=== PATIENT | male | born 1965 | race Caucasian/White ===

== ENCOUNTER → 2016-08-26 | Outpatient (CLI) | payer OTHER | LOC: EDBD → BMCIMAGING 09:56 → EDSEX 09:56 → EDBD 09:56 | PROVIDERS: ATTEND Physician Assistant | DX: S62.637A Displaced fracture of distal phalanx of left little finger, initial encounter for closed fracture (principal) ==

== ENCOUNTER 2016-11-15 16:07 | Emergency (ER) | payer OTHER ==
[2016-11-15 16:12] VITALS: BP 110/62; PULSE 69; RESP 16; TEMP 97.7; O2SAT 96
--- NOTE | 2016-11-15 16:33 | EDPHY ---
H & P Time Seen by Provider: 11/15/16 16:22 HPI/ROS: CHIEF COMPLAINT: Right hand injury HISTORY OF PRESENT ILLNESS: 51-year-old female presents to the emergency department by private vehicle with injury to her right hand. The patient states that she was at home and she cut the palmar aspect of her right hand on the bottom door of the Fridge. The incident happened just prior to arrival. She was able to control the bleeding with firm direct pressure. She believes her tetanus shot is current. She is right-hand dominant. Describes the pain as mild. Denies any other injury or trauma. ROS: Denies numbness or tingling in her fingers, retained foreign body, injury to her right wrist. Past Medical/Surgical History: Orthopedic surgery, hypothyroidism Social History: Smoking Status: Never smoked Physical Exam: On examination the patient has a 1 cm by 2 cm superficial skin avulsion to the base of the palmar aspect of her right thumb overlying thenar eminence. No palpable bony tenderness. Full range of motion of her thumb. No tendon injury noted. Normal sensation to light touch with normal 2 point discrimination. The other fingers appear on injured. There is some slow active bleeding noted. Constitutional: Initial Vital Signs Temperature (C) 36.5 C 11/15/16 16:10 Heart Rate 69 11/15/16 16:10 Respiratory Rate 16 11/15/16 16:10 Blood Pressure 110/62 11/15/16 16:10 O2 Sat (%) 96 11/15/16 16:10 O2 Delivery Mode Room Air Allergies/Adverse Reactions: No Known Allergies Allergy (Unverified 08/01/13 06:45) Home Medications: Medication Instructions Recorded Aspirin [Aspirin 81mg (OTC)] 1 tab PO DAILY 08/01/13 Cholecalciferol Vit D3 [Vitamin D3 08/01/13 1000 units (OTC)] Folic Acid 1 PO DAILY 08/01/13 Herbals/Supplements -Info Only 1 tab PO DAILY 08/01/13 Herbals/Supplements -Info Only 1 tab PO DAILY 08/01/13 [place]-3/Dha/Epa/Fish Oil [Fish Oil] 1 cap PO DAILY 08/01/13 1 tab PO TID 08/01/13 MDM/Departure - MDM ED Course/Re-evaluation: 51-year-old female presents to the emergency department with skin avulsion to the base of the right hand. I do not think sutures are indicated in this was explained to the patient. There is no evidence tendon injury or evidence of retained foreign body. The wound was thoroughly cleansed and surgical foam and dressing was applied. The patient believes her tetanus shot is current and I asked her to call her primary care provider tomorrow to make sure that this is updated and if not we will update by . Patient was given wound care precautions. The patient does tell me that she is planning on going on vacation and I did encourage her to stay out of the salt water as to not potentially cause infection. - Depart Disposition: Home, Routine, Self-Care Clinical Impression: Avulsion of skin of right hand Qualifiers: Encounter type: initial encounter Qualified Code(s): S61.401A - Unspecified open wound of right hand, initial encounter Condition: Good Instructions: Skin Avulsion (ED), Acute Wounds (ED) Additional Instructions: Return to the emergency department if he notices any signs or symptoms of infection such as redness, swelling, increased pain, fever, purulent drainage. Keep wound dry, clean and protected. Call your primary care provider in the morning and update your tetanus shot if needed by . Referrals: Rosamaria Villatoro MD [Primary Care Provider] - As per Instructions
== END 2016-11-15 16:45 | disposition home or self-care (01) ==
DX: S61.401A Unspecified open wound of right hand, initial encounter (principal); Z79.82 Long term (current) use of aspirin; W45.8XXA Other foreign body or object entering through skin, initial encounter; Y92.009 Unspecified place in unspecified non-institutional (private) residence as the place of occurrence of the external cause

== ENCOUNTER → 2016-12-14 | Outpatient (CLI) | payer OTHER | LOC: FIMAGING 13:21 | PROVIDERS: ATTEND Midwife | DX: N92.0 Excessive and frequent menstruation with regular cycle (principal) ==

== ENCOUNTER → 2017-03-17 | Outpatient (CLI) | payer OTHER | LOC: FIMAGING 11:56 | PROVIDERS: ATTEND Family Medicine | DX: Z12.31 Encounter for screening mammogram for malignant neoplasm of breast (principal); E04.1 Nontoxic single thyroid nodule | CPT/HCPCS: G0202 ==

== ENCOUNTER → 2017-09-20 | Outpatient (CLI) | payer OTHER | LOC: BMCIMAGING 11:01 | PROVIDERS: ATTEND Orthopaedic Surgery | DX: S73.191A Other sprain of right hip, initial encounter (principal) ==

== ENCOUNTER → 2018-03-29 | Outpatient (CLI) | payer OTHER | LOC: FIMAGING 15:05 | PROVIDERS: ATTEND Family Medicine | DX: Z12.31 Encounter for screening mammogram for malignant neoplasm of breast (principal); Z80.3 Family history of malignant neoplasm of breast ==